=== PATIENT | male | born 1960 | race Caucasian/White ===

== ENCOUNTER → 2019-03-30 09:55 | Day surgery (SDC) | payer OTHER ==
[~2019-03-30 09:55] MED LIST: Buffered Lidocaine 1% SYRIN* 1 ML/SYRINGE INTRADERM ONE; Lactated Ringers 1000 ML Bag* 1,000 ML IV SCH; Midazolam* 1 MG/ML 5 ML VIAL (5 MG) ONE; Ondansetron INJ* 2 MG/ML VIAL ONE; Propofol* 10 MG/ML 20 ML BTL ONE; fentaNYL* 50 MCG/ML 2 ML VIAL (100 MCG VIAL) ONE
[2019-03-30 13:40] VITALS: BP 129/87
--- NOTE | 2019-03-30 21:23 | PRO ---
CC: Vernon Moore NP * COLONOSCOPY REPORT: DATE OF PROCEDURE: 03/30/19 PRIMARY CARE PHYSICIAN: Vernon Moore NP. INDICATION FOR PROCEDURE: Constipation and family history of colon cancer. PROCEDURE PERFORMED: Complete colonoscopy to the cecum. MEDICATIONS GIVEN: Please see Anesthesia record. DESCRIPTION OF PROCEDURE: After the colonoscopy procedure including the risks, benefits, and alternatives with the risks not limited to perforation, surgery, missed lesions, and/or were explained to the patient, written informed consent was obtained, IV medication was given, and a rectal exam was performed. The rectal exam was unremarkable. The adult Olympus colonoscope was then inserted into the patient's rectum and advanced very carefully through the entirety of the colon and into the cecal base. Cecal base was carefully inspected and normal in appearance. The terminal ileal valve was identified and normal in appearance. A photograph was taken of the cecal cap. Over the next 7 minutes, the scope was carefully withdrawn inspecting the mucosa. In the descending colon, a 0.7 cm polyp was removed entirely with cold snare polypectomy. On further withdrawal to the rectum, direct views were normal. On retroflexion, grade 1 internal hemorrhoids were appreciated. The scope was then removed from the patient. He tolerated the procedure well. He returned to the recovery room in stable condition. IMPRESSION: 1. Complete colonoscopy to the cecum with cold snare polypectomy. 2. Cold snare polypectomy of 0.7 cm polyp in the descending colon. 3. Good prep. 4. Grade 1 internal hemorrhoids. RECOMMENDATIONS: Continue with high-fiber diet using MiraLAX in addition if not moving the bowels. We would recommend a repeat colonoscopy in 5 years' time. [id number]/[facility] #: [id number] [facility]
== END | disposition home or self-care (01) ==
LOC: OR 09:55
PROVIDERS: ATTEND Internal Medicine Gastroenterology
DX: K59.00 Constipation, unspecified (principal); Z80.0 Family history of malignant neoplasm of digestive organs; D12.4 Benign neoplasm of descending colon; E66.9 Obesity, unspecified; I10 Essential (primary) hypertension; Z87.891 Personal history of nicotine dependence; J45.909 Unspecified asthma, uncomplicated; K21.9 Gastro-esophageal reflux disease without esophagitis; F41.8 Other specified anxiety disorders
CPT/HCPCS: 88305; J2250; J2405; J2704; J3010

== ENCOUNTER 2019-06-01 09:14 | Observation (INO) | payer OTHER ==
[~2019-06-01 09:14] MED LIST changes: -Midazolam* 1 MG/ML 5 ML VIAL (5 MG) ONE; -Ondansetron INJ* 2 MG/ML VIAL ONE; -Propofol* 10 MG/ML 20 ML BTL ONE; -fentaNYL* 50 MCG/ML 2 ML VIAL (100 MCG VIAL) ONE
[2019-06-01] MEDS ORDERED: Buffered Lidocaine 1% SYRIN* 1 ML/SYRINGE INTRADERM ONE (09:27)
[2019-06-01] MEDS ORDERED: ceFOXitin 2 GM IVPREMIX* 2 GM/50 ML BAG ONE (09:27)
[2019-06-01 10:26] LABS: ABS Eosinophils 0.1 10^3/ul (0-0.6); ABS Lymphocytes 2.3 10^3/ul (1.0-4.8); ABS Monocytes 0.7 10^3/ul (0-0.8); ABS Neutrophils 3.8 10^3/ul (1.5-7.7); ABS Nucleated RBC 0.1 10^3/ul; Eosinophil % 1.2 %; Hematocrit 50 % (42-52); Hemoglobin 17.9 g/dL (14.0-18.0); Lymphocyte % 33.7 %; Mean Corpuscular HGB Conc 36 g/dL (31-36); Mean Corpuscular Hemoglobin 32 pg (27-31); Mean Corpuscular Volume 89 fL (80-94); Mean Platelet Volume 9.4 fL (7.4-10.4); Nucleated Red Blood Cells % 0.9; Platelet Count 303 10^3/uL (150-450); Red Blood Count 5.69 10^6 /uL (4.18-5.48); Red Cell Distribution Width 13 % (10-15); White Blood Count 6.8 10^3/uL (3.5-10.8)
[2019-06-01] MEDS ORDERED: Propofol* 10 MG/ML 20 ML BTL ONE (11:47)
[2019-06-01] MEDS ORDERED: Lidocaine 2% PF * 5 ML VIAL ONE (11:47)
[2019-06-01] MEDS ORDERED: Midazolam* 1 MG/ML 2 ML VIAL (2 MG) ONE (11:49)
[2019-06-01] MEDS ORDERED: Rocuronium* 10 MG/ML VIAL ONE ×2 (11:49→13:30)
[2019-06-01] MEDS ORDERED: fentaNYL* 50 MCG/ML 2 ML VIAL (100 MCG VIAL) ONE ×2 (11:50→16:12)
[2019-06-01] MEDS ORDERED: Phenazopyridine TAB* 100 MG ONE (12:15)
[2019-06-01] MEDS ORDERED: Bupivacaine 0.5% W/EPI SDV* 30 ML VIAL ONE (12:21)
[2019-06-01] MEDS ORDERED: Ondansetron INJ* 2 MG/ML VIAL ONE (13:15)
[2019-06-01] MEDS ORDERED: Dexamethasone IV* 4 MG/ML 1 ML (4 MG) ONE (13:15)
[2019-06-01] MEDS ORDERED: Ketorolac INJ* 30 MG/ML 1 ML VIAL ONE (13:15)
[2019-06-01] MEDS ORDERED: Metoclopramide IV* 5 MG/ML 2 ML VIAL ONE (13:15)
[2019-06-01] MEDS ORDERED: Naloxone* 0.4 MG/ML 1 ML VIAL IV PRN (13:23)
[2019-06-01] MEDS ORDERED: oxyCODONE TAB* 5 MG TAB PO PRN (13:23)
[2019-06-01] MEDS ORDERED: DiMENhydriNATE IV* 50 MG/ML VIAL IV PUSH PRN (13:23)
[2019-06-01] MEDS ORDERED: Acetaminophen TAB* 325 MG PO PRN (13:23)
[2019-06-01] MEDS ORDERED: Sugammadex * 200 MG/2 ML VIAL IV PUSH ONE (14:45)
[2019-06-01] MEDS ORDERED: Fluorescein 10% INJ* 100 MG/ML AMP ONE (15:08)
[2019-06-01] MEDS ORDERED: Estradiol VAG CM (NF) 1 APPLIC TUBE VAGINAL PRN (15:09)
[2019-06-01] MEDS ORDERED: Ibuprofen TAB* 600 MG PO PRN (15:45)
[2019-06-01] MEDS ORDERED: HYDROmorphone INJ1* 1 MG/ML SYRINGE IV PRN (15:45)
[2019-06-01] MEDS ORDERED: oxyCODONE/Acetamin 5/325 MG* TAB PO PRN (15:45)
[2019-06-01] MEDS ORDERED: Ondansetron INJ* 2 MG/ML VIAL IV PRN (15:45)
[2019-06-01] MEDS ORDERED: Lactated Ringers 1000 ML Bag* 1,000 ML IV SCH (16:00)
[2019-06-01] MEDS: fentaNYL* 50 MCG/ML 2 ML VIAL (100 MCG VIAL) IV PRN ×2 (16:13→16:48)
[2019-06-01] MEDS ORDERED: Acetaminophen TAB* 325 MG ONE (16:16)
[2019-06-01] MEDS: oxyCODONE/Acetamin 5/325 MG* TAB PO PRN ×2 (18:29→22:17)
[2019-06-01] MEDS ORDERED: Fluticasone NASAL SPRAY 50MCG* 16 gm SPRAY BTL BOTH NARES PRN (18:36)
[2019-06-01] MEDS ORDERED: Baclofen TAB* 10 MG PO PRN (18:37)
[2019-06-01] MEDS ORDERED: CMCS: Meloxicam(NF) 7.5 MG TAB PO PRN (18:38)
[2019-06-01] MEDS: Penicillin VK TAB* 250 MG PO SCH (20:30)
--- NOTE | 2019-06-01 21:23 | OP ---
OPERATIVE REPORT: DATE OF OPERATION: 06/01/19 DATE OF : 64 SURGEON: Dr. Malin. RIG BUILDER: Dr. Mann. ANESTHESIA: General endotracheal tube. PRE-OP DIAGNOSIS: Pelvic pain. POST-OP DIAGNOSIS: Pelvic pain. OPERATIVE PROCEDURE: Total laparoscopic hysterectomy and bilateral salpingo- oophorectomy and cystos copy. COMPLICATIONS: None. FINDINGS: On exam under anesthesia, the cervix, vagina, and vulva appeared normal. On laparoscopy, t he uterus, tubes, and ovaries all appeared normal. Liver surface was smooth. DESCRIPTION OF PROCEDURE: The patient was identified and the procedure identified as a laparoscopic total hysterectomy and bilateral salpingo-oophorectomy and cystoscopy. The patient was taken to the operating room, prepped and draped in the usual fashion in the dorsal lithotomy position under genera l anesthesia. A VCare uterine manipulator was placed in the cervical os. A small infraumbilical inc ision was made and a Veress needle was inserted through this. The abdomen was insufflated to 50 mmHg . The Veress needle was removed and the trocar was inserted. The trocar was removed from the sheath and the laparoscope was inserted and the above findings were noted. The two other trocars were place d just lateral to the umbilical incision approximately 8 cm after visualizing that they were away fro m the blood vessels. These were placed under direct visualization. Using the LigaSure, first the in fundibulopelvic ligament on both sides were cauterized and ligated, then the broad ligament down to t he round ligament were ligated and incised. A bladder flap was created via sharp and blunt dissectio n. The LigaSure was used to cauterize the uterine vessels on both sides and the uterosacral ligament s and these were incised. This was brought down laterally. Once the bladder flap had been dissected caudally far enough. This is the point where the uterine vessels both the vein and artery were caut erized on both sides just beyond the rim of the VCare. The unipolar cautery on a Valleylab mode of 3 0 was used to incise the vaginal cuff along the rim of the VCare. This was started anteriorly worked on the left side and then on the right side and then completed posteriorly using the LigaSure for ca uterizing and cutting the uterosacral ligaments. The uterus and VCare were removed through the vagin a and the vagina was closed using 0 Polysorb in a running fashion. Good hemostasis was verified. A cystoscopy was performed and both ureteral orifices were inspected and found to have good ureteral je ts. The dome of the bladder was also inspected and found to be intact. Attention was then returned u p to the laparoscope and looking inside there was good hemostasis with hemostasis being achieved with LigaSure. Good hemostasis was verified. Copious irrigation was utilized and suctioned out and the skin was closed using skin glue. All sponge and instrument counts were correct and the patient retur maryam to recovery room in stable condition. [id number]/[facility] #: [id number]
[2019-06-01 22:10] LABS: ABS Lymphocytes 0.7 10^3/ul (1.0-4.8); ABS Monocytes 0.2 10^3/ul (0-0.8); ABS Neutrophils 9.8 10^3/ul (1.5-7.7); Hematocrit 48 % (42-52); Hemoglobin 16.4 g/dL (14.0-18.0); Lymphocyte % 6.8 %; Mean Corpuscular HGB Conc 34 g/dL (31-36); Mean Corpuscular Hemoglobin 31 pg (27-31); Mean Corpuscular Volume 90 fL (80-94); Mean Platelet Volume 9.2 fL (7.4-10.4); Platelet Count 285 10^3/uL (150-450); Red Blood Count 5.35 10^6 /uL (4.18-5.48); Red Cell Distribution Width 13 % (10-15); White Blood Count 10.8 10^3/uL (3.5-10.8)
[2019-06-02 08:13] VITALS: BP 108/50
[2019-06-02] MEDS ORDERED: Losartan TAB* 25 MG PO SCH (09:00)
[2019-06-02] MEDS ORDERED: Chlorthalidone TAB* 50 MG PO SCH (09:00)
[2019-06-02] MEDS ORDERED: Metoprolol Succinate XL TAB* 50 MG PO SCH (09:00)
[2019-06-02] MEDS: Penicillin VK TAB* 250 MG PO SCH (09:14)
[2019-06-02] MEDS: oxyCODONE/Acetamin 5/325 MG* TAB PO PRN (10:26)
[2019-06-07] MEDS ORDERED: TESTOSTERONE CYPIONATE SUBCUT SCH (18:43)
== END 2019-06-02 11:10 | disposition home or self-care (01) ==
LOC: OR 09:14 → SSU 17:57
PROVIDERS: ADMIT Obstetrics & Gynecology; ATTEND Obstetrics & Gynecology
DX: R10.2 Pelvic and perineal pain (principal); D27.0 Benign neoplasm of right ovary; Z87.891 Personal history of nicotine dependence; E66.9 Obesity, unspecified; J45.909 Unspecified asthma, uncomplicated; I10 Essential (primary) hypertension; F41.8 Other specified anxiety disorders; Z87.890 Personal history of sex reassignment
CPT/HCPCS: 36415; 85025; 86850; 86900; 86901; 88307; 96360; 96361; 96372; A9270-GY; G0378; J0694; J1100; J1885; J2250; J2405; J2704; J2765; J3010

== ENCOUNTER 2019-06-10 10:03 | Observation (INO) | payer OTHER ==
[2019-06-10] MEDS ORDERED: NS 0.9% 1000 ML** 1,000 ML IV ONE (10:16)
--- NOTE | 2019-06-10 10:38 | ED ---
GI/ HPI - HPI Summary HPI Summary: The pt is a 58 yr old female to male transgender patient who is presenting to [facility] c/o vaginal bleeding beginning this morning. He was sent to [facility] by Dr. Tuan Malin OBGYN, with concern for ileus, bowel obstruction, and abscess rule out, following hysterectomy on 06/01/19. He states that after waking up his morning he discovered significant amounts of blood from the vaginal area, which he has not had yet following the surgery. He mentions feeling some pain describing it as a pressure in his lower abdomen and rates his current pain severity a 3/10. The pt notes that he has been experiencing increased urinary frequency 5-6 days GLUER, for which the pt was placed on Bactrim for possible UTI , but abx were changed to Augmentin by Dr. Malin. He also reports decreased bowel movements and normal flatulence, but denies fever, nausea, vomiting, or decreased appetite. He has hx of GERD, hemangioma, and sex reassignment surgery. - History of Current Complaint Chief Complaint: EDVaginalBleeding Time Seen by Provider: 06/10/19 10:11 Stated Complaint: POST OP ISSUES PER PT Hx Obtained From: Patient Onset/Duration: Started Hours Ago Timing: Lasting Hours - this morning Severity: Moderate Current Severity: Moderate Pain Intensity: 3 Location of Pain: Suprapubic Pain Characteristics: Pressure Associated Signs and Symptoms: Positive: Abdominal Pain - Described as a "pressure", Other: - Positive - Vaginal bleeding, "passing gas", decreased bowel movements, difficulty swallowing.. Negative: Nausea, Vomiting, Fever, Change in Appetite - Negative - difficulty eating. Aggravating Factor(s): Nothing Alleviating Factor(s): Nothing - Additional Pertinent History Primary Care Physician: [id number] - Allergy/Home Medications Allergies/Adverse Reactions: Allergies Allergy/AdvReac Type Severity Reaction Status Date / Time SALOMÓN Inhibitors Allergy Severe Difficulty Verified 06/10/19 10:16 Swallowing powder in gloves Allergy Rash Uncoded 06/10/19 10:16 Home Medications: Home Medications Amoxicillin/Potassium Clav [Amox-Clav 250-125 mg Tablet] 1 each PO BID 06/10/19 [History Confirmed 06/10/19] PMH/Surg Hx/FS Hx/Imm Hx Endocrine/Hematology History: Denies: Hx Diabetes Cardiovascular History: Reports: Hx Hypertension - on medication for Denies: Hx Pacemaker/ICD, Other Cardiovascular Problems/Disorders Respiratory History: Denies: Hx Asthma, Other Respiratory Problems/Disorders GI History: Reports: Hx Gastroesophageal Reflux Disease - hx of inthe past- reports nothing currently, Other GI Disorders - hemangioma removed from throat 2016 History: Denies: Other Problems/Disorders Musculoskeletal History: Reports: Hx Arthritis - neck, Hx Bursitis - hx of right shoulder-had surgery for 6 years ago Denies: Other Musculoskeletal History Sensory History: Reports: Hx Contacts or Glasses - glasses Denies: Hx Hearing Aid Opthamlomology History: Reports: Hx Contacts or Glasses - glasses Neurological History: Denies: Other Neuro Impairments/Disorders Psychiatric History: Reports: Hx Anxiety - hx of in the past, Hx Depression - hx of in the past Denies: Hx Panic Disorder - Cancer History Hx Chemotherapy: No - Surgical History Surgical History: Yes Surgery Procedure, Year, and Place: full mouth extraction-05/15/19-DENTAL OFFICE. LEFT MIDDLE FINGER-FOR DISPLACED -[facility]. RIGHT SHOULDER - ROTATOR CUFF REPAIR- [facility]. [place]ILLECTOMY-[place]. NECK FUSION- [facility]. UTERINE ABLATION-[facility]. HEMANGIOMA REMOVED FROM THROAT- [facility] Hx Anesthesia Reactions: No Infectious Disease History: No Infectious Disease History: Denies: Traveled Outside the [place] in Last 30 Days - Family History Known Family History: Positive: Cardiac Disease - Father., Hypertension - Social History Alcohol Use: None Hx Substance Use: No Substance Use Type: Reports: None Hx Tobacco Use: Yes Smoking Status (MU): Former Smoker Amount Used/How Often: 2 PPD X 35 YEARS Review of Systems Negative: Fever Positive: Abdominal Pain - suprapubic pressure, Other - Positive - decreased bowel movements; Negative - decreased appetite. Negative: Vomiting, Nausea Positive: frequency - increased urination, other - Positive - vaginal bleeding All Other Systems Reviewed And Are Negative: Yes Physical Exam - Summary Physical Exam Summary: Constitutional: Well-developed, Well-nourished, Alert. (-) Distressed Skin: Warm, Dry. Well-healing surgical incision site on abdomen. HENT: Normocephalic; Atraumatic Eyes: Conjunctiva normal Neck: Musculoskeletal ROM normal neck. (-) JVD, (-) Stridor, (-) Nuchal rigidity Cardio: Rhythm regular, rate normal, Heart sounds normal; Intact distal pulses; Radial pulses are 2+ and symmetric. (-) Murmur GI: non tender, nondistended, positive bowel sounds : deferred, please see note by Dr. Malin Pulmonary/Chest wall: Effort normal. (-) Respiratory distress, (-) Wheezes, (-) Rales Abd: Soft, (-) tenderness, (-) Distension, (-) Guarding, (-) Rebound Musculoskeletal: (-) Edema Lymph: (-) Cervical adenopathy Neuro: Alert, Oriented x3 Psych: Mood and affect Normal Triage Information Reviewed: Yes Vital Signs On Initial Exam: Initial Vitals Temp Pulse Resp BP Pulse Ox 98.6 F 67 20 131/74 96 06/10/19 10:04 06/10/19 10:04 06/10/19 10:04 06/10/19 10:04 06/10/19 10:04 Vital Signs Reviewed: Yes Diagnostics - Vital Signs Vital Signs Temp Pulse Resp BP Pulse Ox 06/10/19 10:04 98.6 F 67 20 131/74 96 - Laboratory Result Diagrams: 06/10/19 11:28 06/10/19 11:28 Lab Statement: Any lab studies that have been ordered have been reviewed, and results considered in the medical decision making process. - CT CT A/P CT Interpretation Completed By: Radiologist Summary of CT Findings: IMPRESSION: 1. CT findings are consistent with a small abscess immediately above the vagina status. post hysterectomy. 2. Likely hepatic steatosis. ED Physician has reviewed this imaging report. Re-Evaluation - Re-Evaluation First Eval Re-Evaluation Time: 10:55 Comment: Dr. Malin is at pt's bedside. Second Eval Re-Evaluation Time: 13:30 Comment: I discussed plan for Dr. Malin to come see the pt in the ED with CT results positive for abscess. Patient will be admitted after small I&D at bedside. Placed on zosyn. Patient agrees. GIGU Course/Dx - Course Course Of Treatment: 58-year-old female to male transgender patient sent with recent hysterectomy on 06/01 since with vaginal bleeding as well as concern for cellulitis. -Well-appearing normal vitals. Discussed with INPATIENT NURSING AIDE who would like a CT abdomen and pelvis with IV and oral contrast. Will also check basic labs including a CBC to assess for underlying infection, given IV fluids and draw blood cultures. Will hold off on antibiotics at this time as patient is well-appearing. Check urinalysis for signs of urinary tract infection - Diagnoses Provider Diagnoses: Post-operative infection - Physician Notifications Discussed Care Of Patient With: Tuan BENITEZ Time Discussed With Above Provider: 10:15 Instructed by Provider To: Other - [address] consistent with abscess. Pt will be adminestered Zosyn. Dr. Malin will come see the pt for I&D. Pt will be admitted to [facility]. Discharge - Sign-Out/Discharge Documenting (check all that apply): Patient Departure - Admit Patient Received Moderate/Deep Sedation with Procedure: No - Discharge Plan Condition: Stable Disposition: ADMITTED TO [facility] Referrals: Vernon Moore NP [Primary Care Provider] - - Billing Disposition and Condition Condition: STABLE Disposition: Admitted to [facility] - Attestation Statements Document Initiated by Georgeibe: Yes Documenting Scribe: Emilio Gould Provider For Whom Piotr is Documenting (Include Credential): Dr. Jeri Alvarez MD Scribe Attestation: Emilio Negron, scribed for Dr. Jeri Alvarez MD on 06/10/19 at 1404. Scribe Documentation Reviewed: Yes Provider Attestation: The documentation as recorded by the georgeibEmilio bell accurately reflects the service I personally performed and the decisions made by me, Dr. Jeri Alvarez MD Status of Scribe Document: Viewed
[2019-06-10 10:49] LABS: Urine Appearance Cloudy; Urine Bacteria Absent (Absent); Urine Bilirubin Negative (Negative); Urine Blood 2+ (Negative); Urine Color Yellow; Urine Glucose Negative (Negative); Urine Ketones Negative (Negative); Urine Nitrite Negative (Negative); Urine Protein Negative (Negative); Urine Red Blood Cell 2+(6-10/hpf) (Absent); Urine Renal Epithelial Cells Present (Absent); Urine Specific Gravity 1.005 (1.010-1.030); Urine Squamous Epithelial Cell Present (Absent); Urine Urobilinogen Negative (Negative); Urine White Blood Cell 3+(>20/hpf) (Absent)
--- OUTSIDE RECORDS SUMMARY | 2019-06-10 11:43 | XMS REPORT | Continuity of Care Document ---
:1960 External Reference #:[id number] Author Name Tuan Malin M.D. Address [address] [place] [address] Care Team Providers Name Role Phone Tuan Malin M.D. 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 Payers Date Identification Numbers Payment Provider Subscriber Policy Number: [id number] [facility] Mejia Barrera PayID: [id number] [address] [place] [address] Policy Number: [id number] Medicaid [place] Mejia Barrera PayID: [id number] [address] [place] [address] Family History Date Family Member(s) Observation Comments Father due to Prostate Cancer () Father due to Hypertension () Mother due to Lymphoma () Children None First Brother due to Suicide () Paternal Grandfather due to Colon Cancer () Maternal Grandmother due to Liver Cancer () Social History Type Date Description Comments Sex Unknown Marital Status Single Tobacco Use Start: Unknown Never Smoked Cigarettes ETOH Use Denies alcohol use Recreational Drug Use Denies Drug Use Tobacco Use Start: Unknown Patient has never smoked Smoking Status Reviewed: 03/21/19 Patient has never smoked Exercise Type/Frequency Does not exercise Seat Belt/Car Seat Always uses seat belt Currently Active Patient is currently not sexually active Allergies, Adverse Reactions, Alerts Active Allergies Reaction Severity Comments Date Joey Inhibitors 03/20/2019 Medications Active Medications SIG Qnty Indications Ordering Date Provider Ibuprofen take one tab by 30tabs Z01.818 Tuan Randle 05/18/2019 600mg Tablets mouth every 6 Gelber, M.D. hours as needed pain Losartan Potassium 1 by mouth every Unknown 25mg day Tablets Metoprolol Succinate ER 1 by mouth every Unknown day 50mg Tablets ER 24HR Baclofen 1 tablet in Unknown 5mg Tablets vagina at at bedtime Meloxicam take one tablet Unknown 7.5mg Tablets by mouth up to two times a day as needed for joint pain Aspirin [address] Chlorthalidone 1/2 by mouth Unknown 25mg Tablets every day Medications Administered in Office Medication SIG Qnty Indications Ordering Provider Date PT SCRN Tbco Id as Non User Tuan Malin M.D. 05/18/2019 Injection PT SCRN Tbco Id as Non User Tuan Malin M.D. 03/20/2019 Injection Vital Signs Date Vital Result Comment 05/18/2019 1:31pm BP Systolic 128 mmHg BP Diastolic 82 mmHg Body Temperature 98.8 F Heart Rate 70 /min Respiratory Rate 18 /min Height 63 inches 5'3" Weight 199.00 lb BMI (Body Mass Index) 35.2 kg/m2 Last Menstrual Period [id number] 0 03/20/2019 10:58am BP Systolic 128 mmHg BP Diastolic 76 mmHg Height 63 inches 5'3" Weight 194.00 lb BMI (Body Mass Index) 34.4 kg/m2 Last Menstrual Period [id number] 0 Encounters Type Date Location Provider Dx Diagnosis Office Visit 03/20/2019 [facility] Tuan Malin, R10.2 Pelvic and perineal 11:00a M.D. 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 at [facility]06/08/2019 1:40 pm - Nena Vilchis CNM at [facility]06/01/2019 11:00 am - Tuan Malin M.D. at [facility] 03/20/2019 - Tuan Malin M.D.R10.2 Pelvic and perineal painComments:pt would like definitive rx for pain which seems physiologic and related to orgasm but would probably not occur with hysterectomy / bsodiscussed removal of his cervix as well . He is considering metoidaplasty down the line Would seem reasonable to remove for pain/ discussed alternatives.plan TLH / BSOD27.0 Benign neoplasm of right ovaryComments: psersistent and seems unchanged / ? endometrioisis
[2019-06-10 11:47] LABS: ABS Basophils 0.1 10^3/ul (0-0.2); ABS Eosinophils 0.1 10^3/ul (0-0.6); ABS Lymphocytes 2.6 10^3/ul (1.0-4.8); ABS Monocytes 1.1 10^3/ul (0-0.8); ABS Neutrophils 6.7 10^3/ul (1.5-7.7); Eosinophil % 1.4 %; Hematocrit 49 % (42-52); Lymphocyte % 24.4 %; Mean Corpuscular HGB Conc 35 g/dL (31-36); Mean Corpuscular Hemoglobin 31 pg (27-31); Mean Corpuscular Volume 89 fL (80-94); Mean Platelet Volume 8.7 fL (7.4-10.4); Nucleated Red Blood Cells % 0.1; Platelet Count 460 10^3/uL (150-450); Red Blood Count 5.48 10^6 /uL (4.18-5.48); Red Cell Distribution Width 13 % (10-15); White Blood Count 10.6 10^3/uL (3.5-10.8)
[2019-06-10 11:57] LABS: Albumin 4.1 g/dL (3.2-5.2); Albumin/Globulin Ratio 1.2 (1-3); BUN/Creatinine Ratio 10.8 (8-20); Calcium 9.5 mg/dL (8.6-10.3); EGFR Non-African American 95.8 (>60); Globulin 3.3 g/dL (2-4); Potassium 3.5 mmol/L (3.5-5.0); Total Bilirubin 0.5 mg/dL (0.2-1.0); Total Protein 7.4 g/dL (6.4-8.9)
[2019-06-10] MEDS ORDERED: Iohexol 300* (CONTRAST) 10 ML SDV IV ONE (11:59)
[2019-06-10] MEDS ORDERED: Piperacillin/Tazobac ADVAN(*) 3.375 GM in NS 0.9% 100 ML* 100 ML IVPB ONE ×2 (13:32→15:35)
[2019-06-10] MEDS ORDERED: Ondansetron INJ* 2 MG/ML VIAL IV PRN (15:33)
[2019-06-10] MEDS ORDERED: oxyCODONE/Acetamin 5/325 MG* TAB PO PRN (15:33)
[2019-06-10] MEDS ORDERED: Zosyn per Pharmacy* NOTE FOLLOW UP SCH (16:00)
[2019-06-10] MEDS: Ibuprofen TAB* 600 MG PO PRN (17:18)
[2019-06-10] MEDS: ZOSYN 3.375 GM Q8H per EXTENDED INFUSION IVPB SCH ×2 (18:10)
[2019-06-10] MEDS ORDERED: Baclofen TAB* 10 MG PO PRN (20:01)
[2019-06-11] MEDS: ZOSYN 3.375 GM Q8H per EXTENDED INFUSION IVPB SCH ×4 (01:37→10:14)
[2019-06-11 05:26] LABS: ABS Basophils 0.1 10^3/ul (0-0.2); ABS Eosinophils 0.2 10^3/ul (0-0.6); ABS Lymphocytes 2.7 10^3/ul (1.0-4.8); ABS Monocytes 0.9 10^3/ul (0-0.8); ABS Neutrophils 6.2 10^3/ul (1.5-7.7); Eosinophil % 2.1 %; Hematocrit 46 % (42-52); Hemoglobin 15.5 g/dL (14.0-18.0); Lymphocyte % 26.5 %; Mean Corpuscular HGB Conc 34 g/dL (31-36); Mean Corpuscular Hemoglobin 30 pg (27-31); Mean Corpuscular Volume 89 fL (80-94); Mean Platelet Volume 8.3 fL (7.4-10.4); Nucleated Red Blood Cells % 0.1; Platelet Count 375 10^3/uL (150-450); Red Blood Count 5.11 10^6 /uL (4.18-5.48); Red Cell Distribution Width 13 % (10-15); White Blood Count 10.1 10^3/uL (3.5-10.8)
[2019-06-11] MEDS: Ibuprofen TAB* 600 MG PO PRN (05:56)
[2019-06-11 07:31] VITALS: BP 109/63
--- NOTE | 2019-06-13 21:35 | OP ---
DATE OF OPERATION: 06/10/19 - ROOM #333 DATE OF : 64 SURGEON: Tuan Malin MD PRE-OP DIAGNOSIS: Pelvic abscess. POST-OP DIAGNOSIS: Pelvic abscess. OPERATIVE PROCEDURE: Probe of vaginal cuff post hysterectomy. COMPLICATIONS: None. FINDINGS: On exam under anesthesia, there was some induration and small amount of pink discharge. DESCRIPTION OF PROCEDURE: The patient identified, procedure identified as a probe of the vaginal cuff. The patient was in the ER. Using a Graves speculum , the cuff was identified. The area along the right side of the cuff, where the CT had shown a small collection of fluid, was probed with the Os Finder with some scant fluid obtained. Once the Os Finder had been passed successfully , a long Norma was placed. With again some probing of the incision and opening of the Norma, a little more fluid was obtained, in total not significantly above 20 cc. The patient tolerated the procedure well and went to the floor for IV antibiotics. All instruments were removed from the vagina and the patient went to the floor. [id number]/[facility] #: [id number] [facility]
--- NOTE | 2019-06-13 22:09 | DS ---
DISCHARGE SUMMARY: DATE OF ADMISSION: 06/10/19 DATE OF DISCHARGE: 06/11/19 PRINCIPAL DIAGNOSIS ON ADMISSION: Cellulitis and abscess. SECONDARY DIAGNOSIS: Includes gender dysphoria. COMPLICATIONS: None. DISCHARGE MEDICATIONS: At the time of discharge, he was stable. He was discharged on Augmentin 875 b.i.d. CONDITION: He was stable on discharge. FOLLOWUP: He is to follow up in the office in 1 week. HISTORY: This is a 58-year-old status post total laparoscopic hysterectomy approximately 9 days prior, who began to have low-grade fever and abdominal pain and difficulty with bowel movements over the last few days. On admission, he was on Augmentin 875, Yuvafem 10 mcg, ibuprofen 600 mg, losartan 25 mg, metoprolol 50 mg, baclofen 5 mg, meloxicam 7.5 mg. PAST MEDICAL HISTORY: Significant for hypertension, anxiety, eczema, stroke, arthritis, and depression. PAST SURGICAL HISTORY: Includes tonsillectomy, uterine ablation, shoulder arthroscopy, and throat surgery. ALLERGIES: SALOMÓN INHIBITORS. PHYSICAL EXAMINATION: On admission, his abdomen was soft with positive bowel sounds on palpation. His incision sites were clean. On pelvic exam, there was mild induration. HOSPITAL COURSE: The patient was admitted and started on Zosyn. At the time of admission, the cuff was probed with a small amount of serosanguineous fluid obtained of the right side. He was admitted and placed on IV antibiotics overnight. His white count remained normal. He was afebrile and he went home on hospital day #1 without any further complications and improvement in his symptoms. Subsequent cultures showed an E. coli that was not adequately sensitive to Augmentin and as of the date of dictation he was switched Levaquin 500 mg once a day, which the E. coli was sensitive to. [id number]/[facility] #: [id number] [facility]
== END 2019-06-11 11:45 | disposition home or self-care (01) ==
LOC: ED 10:03 → SSU 15:33
PROVIDERS: ADMIT Obstetrics & Gynecology; ATTEND Obstetrics & Gynecology
DX: L03.90 Cellulitis, unspecified (principal); R10.9 Unspecified abdominal pain; T81.49XA Infection following a procedure, other surgical site, initial encounter; N93.9 Abnormal uterine and vaginal bleeding, unspecified; F64.9 Gender identity disorder, unspecified; Z88.0 Allergy status to penicillin; I10 Essential (primary) hypertension; K21.9 Gastro-esophageal reflux disease without esophagitis; Z87.891 Personal history of nicotine dependence; Z90.710 Acquired absence of both cervix and uterus
CPT/HCPCS: 36415; 74177; 80053; 81003; 81015; 85025; 87040; 87070; 87077; 87086; 87186; 96365; 96366; 99284; A9270-GY; G0378; J2543; Q9967